=== PATIENT | female | born 1985 | race Caucasian/White ===

== ENCOUNTER 2017-02-19 11:07 | Emergency (ER) | payer MEDICAID, OTHER ==
[~2017-02-19] VITALS: Ht 162.6 cm; Wt 54.4 kg
[2017-02-19 11:36] VITALS: BP 103/56
[2017-02-19] MEDS ORDERED: HYDROcodone-ACET 10/325MG TAB PO ONE (12:30)
== END 2017-02-19 14:59 | disposition home or self-care (01) ==
LOC: EDSEX 11:07 → ER 11:07
DX: O26.891 Other specified pregnancy related conditions, first trimester (principal); S82.62XA Displaced fracture of lateral malleolus of left fibula, initial encounter for closed fracture; X50.1XXA Overexertion from prolonged static or awkward postures, initial encounter; Y93.89 Activity, other specified; Y99.8 Other external cause status; Y92.89 Other specified places as the place of occurrence of the external cause; Z3A.00 Weeks of gestation of pregnancy not specified
CPT/HCPCS: 29515; 73600